=== PATIENT | female | born 1955 | race Caucasian/White ===

== ENCOUNTER → 2016-10-19 | Outpatient (CLI) | payer MEDICARE, OTHER ==
--- NOTE | 2016-10-19 11:41 | MR ---
EXAMINATION TYPE: MR knee RT wo con DATE OF EXAM: 10/19/2016 11:29 AM COMPARISON: NONE HISTORY: Rt. Knee pain TECHNIQUE: Multiplanar, multiecho imaging of the right knee is performed without IV contrast. FINDINGS: There is only a small amount of joint fluid. 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 There is grade I to II chondrom alacia involving the weightbearing surface of the medial femoral condyle there is no significant josefina dromalacia involving the lateral femoral condyle. Both menisci appear normal. Both the medial and lateral collateral ligaments are intact. Both the anterior and posterior cruciate ligaments are intact. The tibial band inserts normally upon Gerdy's tubercle. The popliteus muscle and tendon are normal. Both the quadriceps and patellar tendons are intact. There is no significant swelling in the Hoffa fa t space. There is some pseudocyst formation adjacent to the tibiofibular articulation. IMPRESSION: 1. CHONDROMALACIA DESCRIBED. 2. NO DEFINITE LIGAMENTOUS OR MENISCAL INJURY. 3. PSEUDOCYSTIC FORMATION ADJACENT TO THE TIBIOFIBULAR ARTICULATION MAY RELATE TO MOTION IN THIS NATE ON.
== END | disposition home or self-care (01) ==
LOC: RADMRIMAIN 10:33
PROVIDERS: ATTEND Orthopaedic Surgery
DX: M22.41 Chondromalacia patellae, right knee (principal); M89.8X6 Other specified disorders of bone, lower leg

== ENCOUNTER 2016-12-18 07:45 | Day surgery (SDC) | payer MEDICARE, OTHER ==
[2016-12-10 10:59] VITALS: BMI 33.3
--- NOTE | 2016-12-18 07:21 | P.HPOR ---
History of Present Illness H&P Date: 12/18/16 Chief Complaint: Left knee pain 61-year-old patient seen with progressive left knee pain. After treatment options were discussed, patient elected post left knee arthroscopy. Consent was obtained. Past Medical History Past Medical History: Asthma, Diabetes Mellitus, GERD/Reflux, Hyperlipidemia, Rheumatoid Arthritis (RA), Sleep Apnea/CPAP/BIPAP, Thyroid Disorder Additional Past Medical History / Comment(s): insulin pump, uses cpap History of Any Multi-Drug Resistant Organisms: None Reported Past Surgical History: Appendectomy, Hysterectomy, Orthopedic Surgery, Tubal Ligation Additional Past Surgical History / Comment(s): lung biopsies, rt wrist, ritesh shoulder surgeries Past Anesthesia/Blood Transfusion Reactions: No Reported Reaction Smoking Status: Never smoker - Past Family History Mother Additional Family Medical History / Comment(s): aneurysm Father Additional Family Medical History / Comment(s): " during triple bypass surgery" Medications and Allergies Home Medications Medication Instructions Recorded Confirmed Type Albuterol Sulfate [Proair Hfa] 1 - 2 puff INHALATION Q6HR PRN 12/10/16 12/10/16 History Atorvastatin [Lipitor] 20 mg PO DAILY 12/10/16 12/10/16 History Furosemide [Lasix] 20 mg PO DAILY 12/10/16 12/10/16 History Gabapentin [Neurontin] 300 mg PO TID 12/10/16 12/10/16 History INSULIN LISPRO (For Pump) [humaLOG 0.01 units SQ-PUMP CONTINUOUS 12/10/16 History (For Pump)] Levothyroxine Sodium [Synthroid] 88 mcg PO DAILY 12/10/16 12/10/16 History Hachita Carbonate 600 mg PO TID 12/10/16 12/10/16 History Mirtazapine 45 mg PO HS 12/10/16 12/10/16 History Topiramate [Topamax] 25 mg PO BID 12/10/16 12/10/16 History traMADol HCL [Ultram] 50 mg PO Q6HR PRN 12/10/16 12/10/16 History Allergies Allergy/AdvReac Type Severity Reaction Status Date / Time adhesive tape Allergy Rash/Hives Verified 12/10/16 10:23 ciprofloxacin [From Cipro] Allergy Rash/Hives, Verified 12/10/16 10:22 high fevers Penicillins Allergy Rash/Hives, Verified 12/10/16 10:22 high fever Physical Examination Osteopathic Statement: *. No significant issues noted on an osteopathic structural exam other than those noted in the History and Physical/Consult. Left knee: Range of motion -2/3-120, mild intra-articular effusion, tenderness along the medial joint line, tenderness along lateral joint line, positive medial Michele 's, positive lateral Michele's, ligaments are stable, crepitance along the medial patellofemoral compartments of range of motion, hip rotation without pain , distal neurovascular exam intact Results X-ray left knee: Mild osteoarthritis MRI left knee: Lateral meniscal tear and osteoarthritis Assessment and Plan Plan: Assessment: Internal derangement left knee with meniscal tear Plan: Arthroscopy left knee with partial meniscectomy and debridement Time with Patient: Less than 30
[~2016-12-18 07:45] MED LIST: DEXAMETHASONE SOD PHOSPHATE 10 MG/ML 1 ML VIAL IV ONE; LACTATED RINGERS 1,000 ML IV SCH; ONDANSETRON 4 MG/2 ML VIAL IVP ONE; ceFAZolin 2 GM in SODIUM CHLORIDE 0.9% 100 ML IVPB ONE
[2016-12-18] MEDS ORDERED: LIDOCAINE 1% 20 ML VIAL (10MG/ML) FOR IV START INTRADERMA ONE (08:48)
[2016-12-18 09:04] LABS: Glucose,Whole Blood 147 mg/dL (75-99)
[2016-12-18] MEDS ORDERED: fentaNYL (PF) 50 MCG/ML 2 ML AMP ONE (09:30)
[2016-12-18] MEDS ORDERED: SUCCINYLCHOLINE CHLORIDE 100 MG/5 ML SYR IV ONE (09:30)
[2016-12-18] MEDS ORDERED: MIDAZOLAM 2 MG/2 ML VIAL ONE (09:30)
[2016-12-18] MEDS ORDERED: PROPOFOL 10 MG/ML 20 ML VIAL IV ONE (09:30)
[2016-12-18] MEDS ORDERED: LIDOCAINE 1% INJ 10MG/ML (20 ML MDV) ONE (09:30)
[2016-12-18] MEDS ORDERED: SODIUM CHLORIDE 0.9% 50 ML with CLINDAMYCIN 600 MG IV ONE ×2 (09:39)
[2016-12-18] MEDS ORDERED: BUPIVACAINE (PF) 0.25% 30 ML VIAL INTRAARTIC ONE (09:49)
--- NOTE | 2016-12-18 10:17 | P.OP ---
Date of Procedure: 12/18/16 Preoperative Diagnosis: Internal derangement left knee Postoperative Diagnosis: 1. Tear medial and lateral meniscus left knee 2. Grade 2 chondromalacia medial femoral condyle left knee 3. Rate 2 chondromalacia patella left knee 4. Reactive synovitis medial and suprapatellar compartments left knee Procedure(s) Performed: 1. Arthroscopic partial medial and lateral meniscectomy left knee 2. Arthroscopic chondroplasty medial femoral condyle left knee 3. Arthroscopic chondroplasty patella left knee 4. Arthroscopic partial synovectomy medial and suprapatellar compartments left knee Implants: Anesthesia: GETA, local Surgeon: Liam Phillip Estimated Blood Loss (ml): 10 Pathology: none sent Condition: stable Disposition: PACU Indications for Procedure: 61-year-old patient seen with progressive left knee pain. After having treatment options discussed, she elected to proceed with arthroscopy. Operative Findings: see description of procedure Description of Procedure: Patient was taken to the operative suite. Patient underwent a general anesthetic by the department of anesthesia. Patient was given preoperative antibiotics. The left lower extremity was placed in a well-padded arthroscopic leg snell. The left leg was prepped and draped in the normal sterile orthopedic fashion. A lateral parapatellar and suprapatellar incision was made. Trochars were inserted. Arthroscopy was initiated. Suprapatellar pouch revealed thick reactive synovitis. The patellofemoral joint appeared to articulate congruently. There was grade 2 chondromalacia of the patella with some osteochondral tears present. The scope was guided into the medial gutter. No loose bodies or plica were identified. The scope was then guided into the medial compartment. A medial parapatellar incision was made. Trocar inserted followed by probe. There was a small radial tear in the midbody medial meniscus. There was an area of grade 2 chondromalacia weightbearing surface medial femoral condyle with some osteochondral tears present. There is some reactive synovitis anteriorly. Partial medial meniscectomy performed on a stable tissue. Chondroplasty performed of the medial femoral condyle down to stable tissue. Partial synovectomy performed. The residual meniscus was probed and found to be stable. The residual osteochondral surface medial femoral condyle was stable. Scope and probe were then guided into the intercondylar notch. Cruciates were identified, probed and found to be stable. The scope and probe were then guided into lateral compartment. There was a radial tear noted in the midbody posterior horn junction lateral meniscus. There was no chondromalacia present. No reactive synovitis or no loose bodies. A partial lateral meniscectomy was performed on a stable tissue. The residual meniscus was stable. The scope was in guided back into the suprapatellar compartment. I introduced the motorized shaver into the super patellar compartment. I performed a chondroplasty of the patella down to stable tissue. I performed a partial synovectomy. The residual osteochondral surface was found to be stable. I took one more look around the entire knee, no residual debris. Instruments were now removed from the joint. The joint was infiltrated with .25% Marcaine. Steri-Strips were applied to the portal sites. Sterile dressings were applied. The patient was placed into a LISET hose. No tourniquet was utilized. The patient was awakened, transferred to a bed and taken to recovery stable satisfactory condition.
[2016-12-18 10:29] VITALS: TEMP 97.8
[2016-12-18 10:49] VITALS: RESP 16
[2016-12-18 11:00] LABS: Glucose,Whole Blood 177 mg/dL (75-99)
[2016-12-18] MEDS: HYDROmorphone 1 MG/ML 1 ML SYRINGE IVP PRN ×2 (11:11→11:39)
[2016-12-18] MEDS ORDERED: LACTATED RINGERS 1,000 ML IV ONE (12:10)
[2016-12-18 13:28] VITALS: BP 150/70; PULSE 77
== END 2016-12-18 13:30 | disposition home or self-care (01) ==
LOC: OR 07:45
PROVIDERS: ATTEND Orthopaedic Surgery
DX: S83.282A Other tear of lateral meniscus, current injury, left knee, initial encounter (principal); S83.242A Other tear of medial meniscus, current injury, left knee, initial encounter; M17.12 Unilateral primary osteoarthritis, left knee; M65.9 Synovitis and tenosynovitis, unspecified; I10 Essential (primary) hypertension; E78.5 Hyperlipidemia, unspecified; J45.909 Unspecified asthma, uncomplicated; M22.42 Chondromalacia patellae, left knee; G47.33 Obstructive sleep apnea (adult) (pediatric); E11.9 Type 2 diabetes mellitus without complications; E07.9 Disorder of thyroid, unspecified; K21.9 Gastro-esophageal reflux disease without esophagitis; Z88.1 Allergy status to other antibiotic agents; Z88.0 Allergy status to penicillin; Z79.899 Other long term (current) drug therapy; Z79.4 Long term (current) use of insulin; Z96.41 Presence of insulin pump (external) (internal); X58.XXXA Exposure to other specified factors, initial encounter
CPT/HCPCS: 29880; J2250; J1100; J2405; J2001; J3010; J1170; J0330; J2704